=== PATIENT | female | born 1975 | race Caucasian/White ===

== ENCOUNTER → 2024-03-07 | Outpatient (CLI) | payer MEDICARE, MEDICAID, SELFPAY ==
--- NOTE | 2024-03-07 15:40 | XR_ITS ---
Examination: PA lateral chest 2 views TECHNIQUE: Upright PA lateral chest 2 views Exam date and time: March 07, 2024 at 1633 hours INDICATIONS: Coughing beginning 8 days ago. FINDINGS: Early pneumonia right base medially Normal heart size Right internal jugular Port-A-Cath satisfactory position IMPRESSION: Early pneumonia right base
== END | disposition home or self-care (01) ==
PROVIDERS: PCP Nurse Practitioner Family; Referring Provider Nurse Practitioner Family; Visit Provider Nurse Practitioner Family
DX: J18.9 Pneumonia, unspecified organism (principal)
CPT/HCPCS: 71046

== ENCOUNTER 2024-03-17 14:53 | Outpatient (RCR) | payer MEDICARE, MEDICAID, SELFPAY ==
--- NOTE | 2024-03-17 15:33 | CTCFLWUP_ITS ---
[facility] [address] [place], [place] [address] FOLLOW-UP NOTE Date: 03/17/2024 MR#: [id number] Name: ARNOLDO THURMAN : 1975 Dx: C90.00 Multiple myeloma not having achieved remission Identification. Patient with multiple myeloma status post stem cell transplant performed April 14. Being followed by Dr. Frost seed technician in [place]. Receiving Revlimid Acyclovir Effexor in [place]. Underwent left hip operation in January at [facility]. Still having moderate pain needing hydrocodone 10 every 6 as needed 120 tabs Patient will be faxing or email the latest records during blood tests. Follow-up in 3 months. Cures website checked Meds approved side effects discussed. Electronically signed by: Rios Leslie M.D. 03/17/2024 3:31 PM
== END 2024-03-25 23:59 | disposition home or self-care (01) ==
LOC: SCTC 14:53
PROVIDERS: PCP Nurse Practitioner Family; Referring Provider Nurse Practitioner Family; Visit Provider Radiology Therapeutic Radiology
DX: C90.00 Multiple myeloma not having achieved remission (principal); Z94.84 Stem cells transplant status
CPT/HCPCS: 99213; G0463

== ENCOUNTER 2024-06-22 14:27 | Outpatient (RCR) | payer MEDICARE, MEDICAID, SELFPAY ==
--- NOTE | 2024-06-22 15:22 | CTCFLWUP_ITS ---
[facility] [address], [place] [address] FOLLOW-UP NOTE Date: 06/22/2024 MR#: [id number] Name: ARNOLDO THURMAN : 1975 Dx: C90.00 Multiple myeloma not having achieved remission Patient with multiple myeloma status post stem cell transplant performed March 2022. Being followed by Dr. Frost saw repairer in [place]. Has been receiving Revlimid Acyclovir Effexor in [place]. Unfortunately the myeloma markers are rising suggestive of failure of stem cell transplant according to patient. For now patient would like to stick to the usual amount of hydrocodone 10 every 6 and hold off any further radiation therapy that may be needed. [facility] website checked pain med discussed. Electronically signed by: Rios Leslie M.D. 06/22/2024 3:20 PM
== END 2024-06-22 23:59 | disposition home or self-care (01) ==
LOC: SCTC 14:27
PROVIDERS: PCP Internal Medicine; Referring Provider Nurse Practitioner Family; Visit Provider Radiology Therapeutic Radiology
DX: C90.00 Multiple myeloma not having achieved remission (principal); Z94.84 Stem cells transplant status
CPT/HCPCS: 99213; G0463

== ENCOUNTER 2024-09-21 14:49 | Outpatient (RCR) | payer MEDICARE, MEDICAID, SELFPAY ==
--- NOTE | 2024-09-21 16:20 | CTCFLWUP_ITS ---
[facility] [address] [place], [place] [address] FOLLOW-UP NOTE Date: 09/21/2024 MR#: [id number] Name: ARNOLDO THURMAN : 1975 Dx: C90.00 Multiple myeloma not having achieved remission Patient has multiple myeloma status post stem cell transplant performed serial whole March 2022. Being followed by Dr. Frost machinery repair maintenance supervisor in [place]. Unfortunately stem cell transplant was not successful and repeat bone marrow June 16, 2024 reveals IgG lambda monoclonal plasma cells. Continuing with weekly chemo in [place]. Whole-body PET scan 06/29/2024 shows uptake in left-sided sacrum mid left humeral shaft and several pelvic areas. Renew her pain meds performed and cures website checked. Electronically signed by: Rios Leslie M.D. 09/21/2024 4:18 PM
== END 2024-09-22 23:59 | disposition home or self-care (01) ==
LOC: SCTC 14:49
PROVIDERS: PCP Internal Medicine; Referring Provider Internal Medicine; Visit Provider Radiology Therapeutic Radiology
DX: C90.00 Multiple myeloma not having achieved remission (principal)
CPT/HCPCS: 99213; G0463

== ENCOUNTER 2024-12-20 14:51 | Outpatient (RCR) | payer MEDICARE, MEDICAID, SELFPAY ==
--- NOTE | 2024-12-20 15:39 | CTCFLWUP_ITS ---
[facility] [address] [place], [place] [address] FOLLOW-UP NOTE Date: 12/20/2024 MR#: [id number] Name: ARNOLDO THURMAN : 1975 Dx: C90.00 Multiple myeloma not having achieved remission Identification. Patient with multiple myeloma status post stem cell transplant at [facility] March 2022. Being followed by Dr. Frost hematology in [place] for regular systemic agents q. . Most recent PET scan performed at [facility] 12/09/2024 revealed increase in hypermetabolic activity of the left humeral diaphysis. Patient is having significant pain in the distal portion of the left humerus. Recent CBC shows no significant evidence of myelosuppression. Patient is interested in getting this area treated for pain relief as it helped local radiation in the past. Short course of treatment of 400 x 4 will be delivered to the left humerus. Electronically signed by: Rios Leslie M.D. 12/20/2024 3:37 PM
--- NOTE | 2024-12-20 15:41 | CTCTXPLN_ITS ---
[facility] [address] [place], [place] [address] Physician Clinical Treatment Planning Note Date of Service: 12/20/2024 Name: ARNODLO THURMAN : 1975 The patient has agreed to proceed with Radiation therapy. Tests and supporting medical records were interpreted to assist in defining the tumor location and extent of disease. Further imaging will be necessary to contour and delineate the volume to which the XRT will be provided. A. Treatment Intent: Palliative B. Modality: 6 MV C. Requested Technique: 3D D. Treatment Site: Left humerus E. Critical structures to be contoured on plan: F. In order to accomplish this plan, I am ordering/Prescribing the followin. Simulations (s) will be performed to accomplish a reproducible treatment position, to determine optimal treatment portals/beam arrangements, to design beam modifying devices and verify treatment portals on patient prior to the commencement of Radiation Therapy. Left humerus 2. Devices; for immobilization and beam shaping: Vac-Mely 3. CT Guidance for placement of XRT paredes Scan area: 4. Portal images Frequency: 5. Invivo transit dose measurement once per week on all VMAT patients. 6. Special Physics Consult Requested for: 7. Other requests: Special procedure chemoradiation G. Dose Objectives: Palliative. Patient told to avoid during treatment course. Electronically signed by: Rios Leslie M.D. 12/20/2024 3:39 PM
--- NOTE | 2024-12-20 15:44 | CTCTXPLNST_ITS ---
Radiation Oncology Treatment Planning Sheet Name: ARNOLDO THURMAN MR#: [id number] : 1975 Dx: C90.00 Multiple myeloma not having achieved remission Date of Service: 12/20/2024 Account #: ?? Pt Treatment Intent: curative palliative other: Stage: Procedure CPT # Ordered Spec. Procedure 53624 1 Vogel Complex (set-up) 24901 L humerus 1 Vogel Simple 45746 1 IMRT Plan 93246 MLC Devices VMAT 48155 Vogel 3 D 88683 1 TRTMT dev Complex 39279 Vaklok/2F 3 TRTMT dev simple 28742 Basic Lawrence 36633 2 Special Dosimetry 18054 Spec Physics 73647 Port Films 52446 1 SRS Cranial/1FX 65941 SBR 5 FX or Less /ex: 5 = 5 fx 26052 IMRT Simple 40484 IMRT Complex 33473 IGRT 97561 Rad del Sputnik8 6-10 68300 1999 06 Rad del Sputnik8 01-11 72682 Cont Med Physics 50914 1 Treatment Planning 14621 1 Weekly Evaluation 66063 1 Rad del com 20 mev 65650 Special Port Plan 54224 TRTMT dev inter 71156 Isodose Complex 50079 Isodose simple 96461 Resp Motion Mgmt Simulation 99270 Placement of Fiducial Markers 78323 Electronically Signed By: Rios Leslie MD, BERTINR 12/20/2024 3:42 PM
== END 2024-12-23 23:59 | disposition home or self-care (01) ==
LOC: SCTC 14:51
PROVIDERS: PCP Internal Medicine; Referring Provider Internal Medicine; Visit Provider Radiology Therapeutic Radiology
DX: C90.00 Multiple myeloma not having achieved remission (principal); Z94.84 Stem cells transplant status
CPT/HCPCS: 77470; 99213; G0463

== ENCOUNTER 2025-01-18 11:15 | Outpatient (RCR) | payer MEDICARE, MEDICAID, SELFPAY ==
--- NOTE | 2025-01-13 12:44 | CTCSNOTE_ITS ---
[facility] [address] [place], [place] [address] CT Simulation Note Date: 01/13/2025 MR# [id number] Name: ARNOLDO THURMAN : 1975 (A) DIAGNOSIS: C90.00 Multiple myeloma not having achieved remission (B) Patient was placed in supine position and used vaklok for immobilization purposes. (C) CT slices included L humerus (D) 3 D Will be needed for maximum sparing of adjacent normal critical structures. (E) Patient tolerated the simulation well and left the room in good condition. Electronically signed by: Rios Leslie MD, BERTINR 01/13/2025 12:41 PM
== END 2025-01-22 23:59 | disposition home or self-care (01) ==
LOC: SCTC 11:15
PROVIDERS: Referring Provider Radiology Therapeutic Radiology; Visit Provider Radiology Therapeutic Radiology
DX: Z51.0 Encounter for antineoplastic radiation therapy (principal); C90.00 Multiple myeloma not having achieved remission
CPT/HCPCS: 77014; 77280; 77290; 77295; 77334; 77412

== ENCOUNTER 2025-02-21 09:39 | Outpatient (RCR) | payer MEDICARE, MEDICAID, SELFPAY ==
--- NOTE | 2025-01-23 12:23 | CTCTRTNOTE_ITS ---
[facility] [address], [place] [address] Weekly Management Date: 01/23/2025 ?? Name: ARNOLDO THURMAN : 1975 A. Patient is currently at 800 cGy. B. Patient is tolerating treatment well. C. . Reeval at [facility] for further procedure. D. Resume radiation therapy. Electronically signed by: Rios Leslie M.D. 01/23/2025 12:21 PM
== END 2025-02-22 23:59 | disposition home or self-care (01) ==
LOC: SCTC 09:39
PROVIDERS: PCP Internal Medicine; Referring Provider Radiology Therapeutic Radiology; Visit Provider Radiology Therapeutic Radiology
DX: Z51.0 Encounter for antineoplastic radiation therapy (principal); C90.00 Multiple myeloma not having achieved remission
CPT/HCPCS: 77336; 77412; 77417; 99213; G0463